=== PATIENT | male | born 1960 | race Hispanic/Latino ===

== ENCOUNTER 2025-02-23 11:50 | Emergency (ER) | payer OTHER ==
[~2025-02-23] VITALS: Ht 170.2 cm; Wt 92.6 kg
--- NOTE | 2025-02-23 12:42 | ERN ---
General Chief Complaint: Partial Amputation/Avulsion Stated Complaint: LACERATION TO LEFT ARM 5TH DIGIT Time Seen by MD: 11:53 History of Present Illness Initial Comments 64-year-old male who presents for crush injury to the left finger. Patient has a job site something smashed his left pinky. No other injuries. Allergies: Coded Allergies: No Known Drug Allergies (Unverified Allergy, Unknown, 02/23/25) Home Meds Active Scripts Amoxicillin/Potassium Clav (Amox Tr-K Clv 875-125 mg Tab) 875 Mg-125 Mg Tablet, 1 TAB PO BID for 7 Days, #14 TAB 0 Refills Prov:XOCHITL NAZARIO DO 02/23/25 Past Medical History Past Medical History: Hypertension Past Surgical History: None ROS Dictation CONSTITUTIONAL: No chills, no fever, no weakness, no diaphoresis, no malaise. HEAD/FACE: No signs of trauma. EENT: No eye pain, no blurred vision, no tearing, no double vision, no ear pain, no ear discharge, no nose pain, no nasal congestion, no throat pain, no throat swelling, no mouth pain. RESPIRATORY: No cough, no orthopnea, no SOB, no stridor, no wheezing. CARDIOVASCULAR: No chest pain, no edema, no palpitations, no syncope. GASTROINTESTINAL/ABDOMINAL: No abdominal pain, no constipation, no diarrhea, no nausea, no vomiting. GENITOURINARY: No abnormal discharge, no dysuria, no frequent urination, no hematuria. No complaints of pain in the genitals. MUSCULOSKELETAL: Left pinky injury INTEGUMENTARY: No change in color, no change in hair/nails, no dryness, no lesion, no lumps, no rash. NEUROLOGICAL/PSYCH: No anxiety, not depressed, no emotional problem, no headache, no numbness, no pre-existing deficit, no history of seizures, no tremors, no weakness. HEMATOLOGIC/LYMPHATIC: Not anemic, no history of blood clots, no apparent bleeding, no bruising, glands not swollen. All Systems Negative, Except as Noted. Physical Exam Physical Exam Dictation VITAL SIGNS: Reviewed. GENERAL APPEARANCE: Alert, oriented x3, no acute distress, obese. HEAD AND FACE: Non-traumatic. EYES: PERRL, pink conjunctivas, eyelid no trauma, anterior chamber clear. EARS: Pinnas intact and no signs of trauma or erythema. Ear canals clear and no discharge. TMs no erythema. NOSE: No discharge, no bleeding. OROPHARYNX: Mouth normal, teeth no caries, tongue pink. Pharynx clear, no erythema. Tonsils no exudates, no abscesses noted. Mucous membrane moist. NECK: Supple, non-tender, no thyromegaly, no masses, no JVD, no bruits. BREAST: Deferred. CHEST: No tenderness, no crepitus, no paradoxical movement, no retractions. LUNGS: Clear, well-ventilated, symmetric, no rales, no wheezing, no rhonchi, no stridor, good breath sounds bilaterally. HEART: Regular rate, regular rhythm, no murmur, no gallops. VASCULAR: No peripheral edema. ABDOMEN: Soft, positive bowel sounds, nondistended, no guarding, nontender, no rebound, no masses no hepatomegaly, no splenomegaly, no Berman's sign, no h ernias. RECTAL: Deferred. GENITAL: Deferred. NEUROLOGICAL: Normal speech, gross motor function intact, gross sensory functi on intact. MUSCULOSKELETAL: Neck nontender, full range of motion, back nontender, full range of motion. Left finger laceration no bone exposed EXTREMITIES: Nontender, full range of motion. SKIN: Color pink, dry, no turgor, no rash, no lacerations, no abrasions, no contusions. LYMPHATICS: Deferred. [facility] CC: Left pinky laceration and crush injury Historian: Patient Comorbidities: Hypertension Limitations by social determinants of health: None Differential diagnosis: Open fracture, laceration, other On clinical exam he was laceration of the pinky, there is no obvious bone exposed. It was have good cap refill. Pinky x-ray (independently interpreted by me): Likely nondisplaced tuft fracture. Soft tissue swelling. Tetanus was updated I performed a digital block, copiously cleaned the laceration, there is no bolus goes or foreign bodies. Repaired the laceration. Placed in a splint. We will DC the orthopedic follow up. We will DC with a prescription for Augmentin. ED Course Orders Procedure Category Date Status Time Tetanus,Diphtheria PHA 02/23/25 Complete Tox [Adult] (Diphther 13:00 Finger(S) 2+Vws Lt RAD 02/23/25 Resulted 12:39 Tetanus,Diphtheria PHA 02/23/25 Complete Tox [Adult] (Diphther 13:40 Bacitracin PHA 02/23/25 Complete (Bacitracin) 13:49 Current Medications Medications (Trade) Dose Ordered Sig/Bhargav Route PRN Reason Start Time Stop Time Status Last Admin Dose Admin Bacitracin (Bacitracin) 1 each STK-MED ONCE TP 02/23/25 13:49 02/23/25 13:49 DC 02/23/25 13:51 Tetanus/ Diphtheria Toxoids Adsorbed (DiphthERIA-teTANUS TOXOID [ADULT]/ DECAVAC) 0.5 ml ONCE ONCE IM 02/23/25 13:00 02/23/25 13:41 DC 02/23/25 13:53 Tetanus/ Diphtheria Toxoids Adsorbed (DiphthERIA-teTANUS TOXOID [ADULT]/ DECAVAC) 0.5 ml STK-MED ONCE IM 02/23/25 13:40 02/23/25 13:41 DC Vital Signs Date Time Temp Pulse Resp B/P (MAP) Pulse Ox O2 Delivery O2 Flow Rate FiO2 02/23/25 14:08 98.2 58 16 157/85 97 Room Air* 0 21 02/23/25 12:36 58 16 171/100 97 Room Air 0 Laceration/Wound Repair Laceration/Wound Repair : Wound Location: upper extremity (L distal pinky) Wound's Depth, Shape: irregular Wound Explored: clean Irrigated w/ Saline (ccs): 200 Betadine Prep?: Yes Anesthesia: 1% Lidocaine Volume Anesthetic (ccs): 5 Wound Debrided: minimal Wound Repaired With: sutures Suture Size/Type: 4:0 Number of Sutures: 4 Layer Closure?: No Sterile Dressing Applied?: Yes (length 2 cm) DX & DISP Disposition: Discharge Departure Impression: Primary Impression: Fingertip avulsion Additional Impression: Open fracture of tuft of distal phalanx of finger Condition: Stable Scripts Amoxicillin/Potassium Clav (Amox Tr-K Clv 875-125 mg Tab) 875 Mg-125 Mg Tablet 1 TAB PO BID for 7 Days, #14 TAB 0 Refills Prov: XOCHITL NAZARIO DO 02/23/25 Additional Instructions: You have a distal finger fracture (tuft fracture) with a laceration. It was repaired here in the ER. Take the antibiotic they have been prescribed. Follow up with a hand specialist. Follow up with a primary doctor for further recommendations regarding limitations. Referrals: SELF,REFERRAL (PCP) XOCHITL NAZARIO DO Feb 23, 2025 12:42
[2025-02-23] MEDS: BACITRACIN 1 EACH PACKET TP ONE (13:51)
[2025-02-23] MEDS: teTANUS/diphthERIA TOXOID [ADULT] 0.5 ML VIAL IM ONE ×2 (13:51→13:53)
[2025-02-23] MEDS ORDERED: AMOX1TAB16 PO (13:53)
[2025-02-23 14:08] VITALS: BP 157/85; PULSE 58; RESP 16; TEMP 98.2; O2SAT 97
--- NOTE | 2025-02-23 17:04 | HMCIMG ---
FINGER(S) 2+VWS LT HISTORY: Crush injury COMPARISON: None TECHNIQUE: 3 images of the left fifth finger were obtained. FINDINGS: Soft tissue swelling is seen. Nondisplaced fracture involving the terminal tuft of the fifth distal phalanx cannot be excluded. Extensive soft tissue swelling is seen limiting evaluation of the distal femur. Degenerative changes are seen. IMPRESSION: 1. Findings as described above.
== END 2025-02-23 14:38 | disposition home or self-care (01) ==
LOC: EDH 11:50
DX: S62.667A Nondisplaced fracture of distal phalanx of left little finger, initial encounter for closed fracture (principal); S61.217A Laceration without foreign body of left little finger without damage to nail, initial encounter; I10 Essential (primary) hypertension; W23.0XXA Caught, crushed, jammed, or pinched between moving objects, initial encounter; Y93.89 Activity, other specified; Y92.89 Other specified places as the place of occurrence of the external cause; Y99.8 Other external cause status
CPT/HCPCS: 12001; 73140; 90471; 90714; 99283